=== PATIENT | female | born 1940 | race Caucasian/White ===

== ENCOUNTER → 2017-07-11 | Outpatient (CLI) | payer MEDICARE ==
[~2017-07-11] MED LIST: AZITHROMYCIN 2250 MG PO; CHERACOL COUGH120 ML PO; COUMADIN 5 MG TA5 MG PO; DIOVAN HCT 1601 EAC1; FLEXERIL PO; IBUPROFEN 600600 M1 PO; LISINOPRIL10 MG; LISINOPRIL10 MG PO; NAPROSYN250 MG PO; NEXIUM20 M1; NEXIUM20 M1 PO; NORVASC5 MG PO; PAXIL20 MG PO; PREDNISONE 20 M20 MG PO; PROVENTIL OR; UNKNOWN BP MED; XARELTO15 MG PO
== END ==
LOC: M.RAD 11:21
DX: Z12.31 Encounter for screening mammogram for malignant neoplasm of breast (principal)

== ENCOUNTER 2018-12-29 19:02 | Emergency (ER) | payer MEDICARE ==
[~2018-12-29] VITALS: Ht 167.6 cm; Wt 69.0 kg
[2018-12-29 20:31] VITALS: BP 148/59
== END 2018-12-29 20:31 | disposition home or self-care (01) ==
LOC: M.ERS 19:02
DX: S61.216A Laceration without foreign body of right little finger without damage to nail, initial encounter (principal); I10 Essential (primary) hypertension; F41.9 Anxiety disorder, unspecified; Z88.0 Allergy status to penicillin; Z88.2 Allergy status to sulfonamides; W20.8XXA Other cause of strike by thrown, projected or falling object, initial encounter; Y92.89 Other specified places as the place of occurrence of the external cause; Y93.89 Activity, other specified; Y99.8 Other external cause status

== ENCOUNTER 2019-01-07 11:30 | Emergency (ER) | payer MEDICARE ==
[~2019-01-07] VITALS: Ht 167.6 cm; Wt 69.0 kg
[2019-01-07 12:12] VITALS: BP 172/69
== END 2019-01-07 12:14 | disposition home or self-care (01) ==
LOC: M.ERS 11:30
DX: Z48.02 Encounter for removal of sutures (principal); I10 Essential (primary) hypertension; F41.9 Anxiety disorder, unspecified; Z98.49 Cataract extraction status, unspecified eye

== ENCOUNTER → 2021-07-03 | Outpatient (CLI) | payer MEDICARE | LOC: M.RAD 06-19 13:00 | PROVIDERS: ATTEND Family Medicine | DX: Z12.31 Encounter for screening mammogram for malignant neoplasm of breast (principal) ==